=== PATIENT | female | born 1970 | race Caucasian/White ===

== ENCOUNTER 2019-03-06 18:28 | Emergency (ER) | payer BC, OTHER ==
[~2019-03-06] VITALS: Ht 167.6 cm; Wt 48.5 kg
[2019-03-06 19:31] LABS: BASOPHILS # (AUTO) 0.1 (0.0-0.1); BASOPHILS % 1.9 % (0.0-1.0); EOSINOPHILS # (AUTO) 0.3 (0.0-0.4); EOSINOPHILS % 6.7 % (0.0-6.0); HEMATOCRIT 38.8 % (34.2-44.1); HEMOGLOBIN 12.2 g/dL (12.0-16.0); LYMPHOCYTES # (AUTO) 1.4 (1.0-3.2); LYMPHOCYTES % 32.8 % (18.0-39.1); MEAN CORPUSCULAR HEMOGLOBIN 27.4 pg (28-32); MEAN CORPUSCULAR HGB CONC 31.4 g/dL (31-35); MEAN CORPUSCULAR VOLUME 87.2 fL (81-99); MONOCYTES # (AUTO) 0.3 (0.2-0.8); MONOCYTES % 8.1 % (4.4-11.3); NEUTROPHILS # (AUTO) 2.1 (2.1-6.9); NEUTROPHILS % 50.3 % (38.7-80.0); PLATELET COUNT 356 x10e3/uL (140-360); RED BLOOD COUNT 4.45 x10e6/uL (3.6-5.1); RED CELL DISTRIBUTION WIDTH 15.7 % (11.7-14.4)
--- NOTE | 2019-03-06 19:34 | Diagnostic Imaging Report ---
Exam: Head CT without contrast History: Forgetfulness, headache, disoriented Comparison studies: None Technique: Axial images were obtained from the skull base to the vertex. Coronal and sagittal images reconstructed from the axial data. Dose modulation, iterative reconstruction, and/or weight based adjustment of the mA/kV was utilized to reduce the radiation dose to as low as reasonably achievable. Radiation dose: Total DLP: 921 mGy*cm. Estimated effective dose: DLP x 0.015 Intravenous contrast: None Findings: Scalp: No abnormalities. Bones: No fractures, blastic or lytic lesions. Brain sulci: Appropriate for age. Ventricles: Normal in size and configuration. No hydrocephalus. Extra-axial spaces: No masses, no fluid collection. Parenchyma: No abnormal densities. No masses, acute hemorrhage, acute or chronic vascular insults. Sellar/suprasellar region: No abnormalities. Craniocervical junction: Patent foramen magnum. No Chiari one malformation. Included paranasal sinuses: Clear. Middle ear and mastoid cavities: Clear. IMPRESSION: No acute abnormalities. Signed by: Dr. Taurus Kapadia M.D. on 03/06/2019 7:30 PM
--- NOTE | 2019-03-06 19:49 | Diagnostic Imaging Report ---
EXAMINATION: CHEST 2 VIEWS INDICATION: ^SOB ^[id number] ^[id number] COMPARISON: None FINDINGS: PA and lateral views TUBES and LINES: None. LUNGS: Lungs are well inflated. There is no evidence of pneumonia or pulmonary edema. PLEURA: No pleural effusion or pneumothorax. HEART AND MEDIASTINUM: The cardiomediastinal silhouette is unremarkable. BONES AND SOFT TISSUES: No acute osseous lesion. Soft tissues are unremarkable. UPPER ABDOMEN: No free air under the diaphragm. IMPRESSION: No acute thoracic abnormality. Signed by: Dr. Nagi Salazar MD on 03/06/2019 7:45 PM
[2019-03-06 19:51] LABS: ALANINE AMINOTRANSFERASE 15 IU/L (0-55); ALBUMIN/GLOBULIN RATIO 1.4 (0.8-2.0); ALKALINE PHOSPHATASE 34 IU/L (40-150); ANION GAP 12.1 mmol/L (8-16); BLOOD UREA NITROGEN 13 mg/dL (7-26); BUN/CREATININE RATIO 16 (6-25); CALCIUM 9.2 mg/dL (8.4-10.2); CARBON DIOXIDE 29 mmol/L (22-29); CHLORIDE 102 mmol/L (98-107); EST GLOMERULAR FILTRATION RATE > 60 ML/MIN (60-); GLUCOSE 107 mg/dL (74-118); POTASSIUM 4.1 mmol/L (3.5-5.1); SODIUM 139 mmol/L (136-145)
[2019-03-06 21:35] LABS: BILIRUBIN,URINE NEGATIVE (NEGATIVE); CLARITY,URINE CLEAR (CLEAR); COLOR,URINE YELLOW (YELLOW); KETONES,URINE NEGATIVE (NEGATIVE); LEUKOCYTE ESTERASE ,URINE SMALL (NEGATIVE); NITRITE,URINE NEGATIVE (NEGATIVE); PROTEIN,URINE DIPSTICK 1+ (NEGATIVE); URINE UROBILINOGEN 0.2 mg/dL (0.2 - 1)
[2019-03-06 21:40] LABS: AMPHETAMINES SCREEN,URINE NEGATIVE (NEGATIVE); BENZODIAZEPINES SCREEN,URINE NEGATIVE (NEGATIVE); PHENCYCLIDINE SCREEN,URINE NEGATIVE (NEGATIVE)
[2019-03-06 21:47] LABS: BACTERIA,URINE MANY /HPF; EPITHELIAL CELLS,URINE MANY /LPF; TRANSITIONAL EPI CELLS,URINE MODERATE; WBC,URINE (MAN) 0-5 /HPF (0-5)
[2019-03-06 23:08] VITALS: BP 106/78
--- NOTE | 2019-03-06 23:16 | NUR ---
PT INFORMED OF URINE DRUG SCREEN RESULTS BY ER MD. PT DENIES ILLEGAL DRUG USE. ON DISCHARGE PATIENT ASKING IF ADDERALL PURSCHASED "OFF THE STREET COULD BE CUT WITH METH." PT INFORMED THAT PURSCHASING MEDICATION "OFF THE STREET" IS UNSAFE AND THAT THERE IS NO GUARANTEE TO WHAT IS IN "OFF THE STREET" THE MEDICATION. RECOMMENDED THAT PATIENT ONLY TAKE MEDICATION THAT IS ACQUIRED BY PRESCRIPTION THROUGH A PHYSICIAN. ER MD INFORMED OF PATIENT COMMENTS.
== END 2019-03-06 23:22 | disposition home or self-care (01) ==
LOC: ER 18:28
DX: R21 Rash and other nonspecific skin eruption (principal); R53.83 Other fatigue; J45.909 Unspecified asthma, uncomplicated; F41.9 Anxiety disorder, unspecified; F32.9 Major depressive disorder, single episode, unspecified; F17.210 Nicotine dependence, cigarettes, uncomplicated
CPT/HCPCS: 36415; 70450; 71046; 80053; 80307; 81001; 85025; 99284

== ENCOUNTER 2019-09-19 00:29 | Emergency (ER) | payer BC ==
[~2019-09-19] VITALS: Ht 167.6 cm; Wt 48.5 kg
--- OUTSIDE RECORDS SUMMARY | 2019-09-19 00:32 | XMS REPORT ---
Author Author [facility] Address Unknown Phone Unavailable Care Team Providers [facility] Honer Name Role Phone Chhaya ROSAS Unavailable Unavailable Payers Payer Name Policy Type Policy Number Effective Date Expiration Date Problems This patient has no known problems. Allergies, Adverse Reactions, Alerts Allergy Name Allergy Type Status Severity Reaction(s) Onset Date Inactive Date Treating Clinician Comments Sulfa (Sulfonamide Antibiotics) DA Active SV 2019-07-17 00:00:00 Sulfa (Sulfonamide Antibiotics) DA Active U 2019-03-27 00:00:00 Medications This patient has no known medications. Encounters Start Date/Time End Date/Time Encounter Type Admission Type Attending [facility] Care Department Encounter ID 2019-04-30 16:02:00 2019-04-30 16:02:00 Outpatient MHSE [id number] Results Test Description Test Time Test Comments Text Results Atomic Results Result Comments SURGICAL SPECIMENS 2019-07-25 08:03:00 RUN DATE: 07/25/19 [facility] *LIVE* PAGE 1 RUN TIME: 802 Specimen Inquiry RUN USER: INTERFACE PATIENT: CARLOS TOLLIVER LOC: [place] U #: [id number] AGE/SX: 49/F ROOM: RE07/21/[facility] DR: Raquel Arvizu MD : 74 BED: DIS: STATUS: [facility] TLOC: SPEC #: [id number] RECD: 07/22/19 STATUS: GUIDO MOCTEZUMA #: [id number] [place]: 07/22/[address] [facility] [address]: Raquel Arvizu MD ENTERED: 07/25/19 SP TYPE: SURG SPEC OTHR DR: Ajit Clements DO ORDERED: GM LEVEL 4 CODES: [id number] - UTERUS, NOS COPIES TO: Raquel Arvizu MD [address] [place] [address] Ajit Clements DO [address] [place] [address] PROCEDURES: GM LEVEL 4 (Incomplete) TISSUES: 1. UTERUS, NOS - Uterus, cervix, bilateral tubes and ovar FINAL DIAGNOSIS Cervix uteri: Chronic cervicitis, squamous metaplasia, nabothian cysts. Endometrium: Disordered proliferative endometrium. Corpus uteri: Adenomyosis, fibrous serosal adhesions. Adnexa, bilateral: Hydrosalpinx, follicular cyst (left). GROSS AND MICROSCOPIC GROSS EXAMINATION: Received the specimen as designated above and it consists of a uterus with attached bilateral adnexa that weighs 201 g. The uterus measures 8.5 x 6.3 x 6 cm, right ovary 3 cm, right tube 7.5 x 1 cm, left ovary 4 cm and left tube 8.5 x 1.2 cm. The endometrium measures 0.5 cm, myometrium 2.7 cm without nodules. Sections are submitted as (A)-right adnexa; (B)-(H.)-cervix, uterus and left adnexa. MICROSCOPIC EXAMINATION: The ectocervical mucosa has normal maturation. The endocervical mucosa has nabothian cysts, areas of squamous metaplasia and associated chronic inflammation. The endometrial glands are tubular or dilated and mitotic figures are CONTINUED ON NEXT PAGE RUN DATE: 07/25/19 [facility] *LIVE* PAGE 2 RUN TIME: 802 Specimen Inquiry RUN USER: INTERFACE SPEC #: [id number] PATIENT: CARLOS TOLLIVER #[id number] (Continued) GROSS AND MICROSCOPIC (Continued) within both the glands and the stroma. Benign endometrial glands and stroma are present in the myometrium. The serosa shows fibrous adhesions. The right adnexa shows hydrosalpinx. The left adnexa shows hydrosalpinx and follicular cyst. POST-OP DIAGNOSIS None given PRE-OP DIAGNOSIS Abnormal uterine bleeding, menorrhagia, anemia Signed SIGNATURE ON FILE Thalia Oseguera MD 07/25/19 0803 END OF REPORT COMPREHENSIVE METABOLIC PANEL 2019-07-17 09:33:00 SODIUM (test code=NA) 138 mEq/L 134-147 POTASSIUM (test code=K) 4.0 mEq/L 3.4-5.0 CHLORIDE (test code=CL) 106 mEq/L 100-108 CARBON DIOXIDE (test code=CO2) 28 mEq/L 21-33 ANION GAP (test code=GAP) 8 0-20 GLUCOSE (test code=GLU) 84 mg/dL 70-110 BLOOD UREA NITROGEN (test code=BUN) 9 mg/dL 7-18 GLOMERULAR FILTRATION RATE (test code=GFR) 107.2 95-105 Units of measure=ml/min/1.73 m2 CREATININE (test code=CREAT) 0.6 mg/dL 0.6-1.3 TOTAL PROTEIN (test code=PROT) 7.2 g/dL 6.4-8.2 ALBUMIN (test code=ALB) 3.90 g/dL 3.4-5.0 CALCIUM (test code=CA) 9.0 mg/dL 8.0-10.5 BILIRUBIN TOTAL (test code=BILT) 0.3 MG/DL <1.5 SGOT/AST (test code=AST) 15 IUnit/L 15-37 SGPT/ALT (test code=ALT) 22 IUnit/L 15-65 ALKALINE PHOSPHATASE TOTAL (test code=ALKP) 40 IUnit/L 20-125 HCG SERUM [id number] 09:33:00* Test Item Value Reference Range Comments HCG SERUM QUAL (test code=HCGQL) SERUM NEGATIVE NEGATIVE PROTHROMBIN [id number] 09:26:00* Test Item Value Reference Range Comments PROTHROMBIN TIME PATIENT (test code=PTP) 10.6 SECONDS 9.3-12.9 INTERNATIONAL NORMAL RATIO (test code=INR) 1.0 0.8-1.2 TARGET INR BY INDICATION Indication INR1. Prophylaxis of venous thrombosis 2.0 - 3.0 (orthopedic surgery), Prophylaxis of venous thrombosis (other than high-risk surgery), Treatment of Deep Vein Thrombosis/Pulmonary Embolism, Prevention of systemic embolism - Tissue heart valves, Acute Myocardial Infarction (to prevent systemic embolism), Valvular heart disease, Atrial Fibrillation, Bileaflet mechanical valve in aortic position.2. Mechanical prosthetic valves (high risk), 2.5 - 3.5 Presence of Lupus Anticoagulant or Antiphospholipid Antibodies, Prevention of systemic embolism - Acute Myocardial Infarction (to prevent recurrent infarct). THROMBOPLASTIN TIME [id number] 09:26:00* Test Item Value Reference Range Comments THROMBOPLASTIN TIME PARTIAL (test code=PTT) 38.4 Seconds 25.0-39.5 Therapeutic Range: 50.4 - 88.3 Seconds Effective 11/05/2018 COMPREHENSIVE METABOLIC [id number] 09:25:00* Test Item Value Reference Range Comments SODIUM (test code=NA) 138 mEq/L 134-147 POTASSIUM (test code=K) 4.0 mEq/L 3.4-5.0 CHLORIDE (test code=CL) 106 mEq/L 100-108 CARBON DIOXIDE (test code=CO2) 28 mEq/L 21-33 ANION GAP (test code=GAP) 8 0-20 GLUCOSE (test code=GLU) 84 mg/dL 70-110 BLOOD UREA NITROGEN (test code=BUN) 9 mg/dL 7-18 GLOMERULAR FILTRATION RATE (test code=GFR) 95-105 CREATININE (test code=CREAT) mg/dL 0.6-1.3 TOTAL PROTEIN (test code=PROT) g/dL 6.4-8.2 ALBUMIN (test code=ALB) g/dL 3.4-5.0 CALCIUM (test code=CA) 9.0 mg/dL 8.0-10.5 BILIRUBIN TOTAL (test code=BILT) MG/DL <1.5 SGOT/AST (test code=AST) IUnit/L 15-37 SGPT/ALT (test code=ALT) IUnit/L 15-65 ALKALINE PHOSPHATASE TOTAL (test code=ALKP) IUnit/L 20-125 HCG SERUM [id number] 09:25:00* Test Item Value Reference Range Comments HCG SERUM QUAL (test code=HCGQL) SERUM NEGATIVE NEGATIVE COMPREHENSIVE METABOLIC [id number] 09:23:00* Test Item Value Reference Range Comments SODIUM (test code=NA) mEq/L 134-147 POTASSIUM (test code=K) mEq/L 3.4-5.0 CHLORIDE (test code=CL) mEq/L 100-108 CARBON DIOXIDE (test code=CO2) mEq/L 21-33 ANION GAP (test code=GAP) 0-20 GLUCOSE (test code=GLU) mg/dL 70-110 BLOOD UREA NITROGEN (test code=BUN) mg/dL 7-18 GLOMERULAR FILTRATION RATE (test code=GFR) 95-105 CREATININE (test code=CREAT) mg/dL 0.6-1.3 TOTAL PROTEIN (test code=PROT) g/dL 6.4-8.2 ALBUMIN (test code=ALB) g/dL 3.4-5.0 CALCIUM (test code=CA) mg/dL 8.0-10.5 BILIRUBIN TOTAL (test code=BILT) MG/DL <1.5 SGOT/AST (test code=AST) IUnit/L 15-37 SGPT/ALT (test code=ALT) IUnit/L 15-65 ALKALINE PHOSPHATASE TOTAL (test code=ALKP) IUnit/L 20-125 HCG SERUM [id number] 09:23:00* Test Item Value Reference Range Comments HCG SERUM QUAL (test code=HCGQL) SERUM NEGATIVE NEGATIVE CBC W/AUTO [id number] 09:16:00* Test Item Value Reference Range Comments WHITE BLOOD CELL (test code=WBC) 4.39 x10 3/uL 4.5-11.0 RED BLOOD CELL (test code=RBC) 4.10 x10 6/uL 3.54-5.02 HEMOGLOBIN (test code=HGB) 12.9 g/dL 11.0-15.0 HEMATOCRIT (test code=HCT) 39.1 % 33.0-45.0 MEAN CELL VOLUME (test code=MCV) 95.4 fL 81.0-99.0 MEAN CELL HGB (test code=MCH) 31.5 pg 27.0-33.0 MEAN CELL HGB CONCETRATION (test code=MCHC) 33.0 g/dL 33.0-37.0 RED CELL DISTRIBUTION WIDTH CV (test code=RDW) 12.7 % 11.5-14.5 RED CELL DISTRIBUTION WIDTH SD (test code=RDW-SD) 44.7 fL 37.0-54.0 PLATELET COUNT (test code=PLT) 339 x10 3/uL 150-400 MEAN PLATELET VOLUME (test code=MPV) 9.2 fL 7.0-9.0 NEUTROPHIL % (test code=NT%) 48.8 % 56.0-77.0 IMMATURE GRANULOCYTE % (test code=IG%) 0.2 % 0.0-2.0 LYMPHOCYTE % (test code=LY%) 35.3 % 14.0-32.0 MONOCYTE % (test code=MO%) 8.9 % 4.8-9.0 EOSINOPHIL % (test code=EO%) 5.2 % 0.3-3.7 BASOPHIL % (test code=BA%) 1.6 % 0.0-2.0 NUCLEATED RBC % (test code=NRBC%) 0.0 % 0-0 NEUTROPHIL # (test code=NT#) 2.14 x10 3/uL 2.0-7.6 IMMATURE GRANULOCYTE # (test code=IG#) 0.01 x10 3/uL 0.00-0.03 LYMPHOCYTE # (test code=LY#) 1.55 x10 3/uL 1.0-3.8 MONOCYTE # (test code=MO#) 0.39 x10 3/uL 0.1-0.8 EOSINOPHIL # (test code=EO#) 0.23 x10 3/uL 0.0-0.2 BASOPHIL # (test code=BA#) 0.07 x10 3/uL 0.0-0.2 NUCLEATED RBC # (test code=NRBC#) 0.00 x10 3/uL 0.0-0.1 MANUAL DIFF REQUIRED (test code=MDIFF) NO MISC TEST:2019-04-10 07:30:00* Test Item Value Reference Range Comments MISC TEST: (test code=MISCCHEM) Lyme (B. burgdorferi TESTS RESULT REFERENCE INTERVAL Lyme (B. burgdorferi) PCR Negative Negative No B. burgdorferi DNA Detected. Test performed at: [facility] [address] C REACTIVE [id number] 22:06:00* Test Item Value Reference Range Comments C REACTIVE PROTEIN (test code=CRP) <0.29 mg/dL 0-0.3 ANTINUCLEAR ANTIBODIES [id number] 22:06:00* Test Item Value Reference Range Comments MASSIMO SCREEN (test code=ANASCR) Negative Negative Performed At: [facility] [id number] Rylan Ordonez MD Ph:[phone] BARTONELLA HENSELAE [id number] 22:06:00* Test Item Value Reference Range Comments AB BARTONELLA HENSELAE IGG (test code=BARTGAB) Negative titer Neg:<1:320 Bartonella henselae IgG . AB BARTONELLA HENSELAE IGM (test code=BARTMAB) Negative titer Neg:<1:100 Bartonella henselae IgM . AB BARTONELLA SHAVER IGG (test code=BARTQIGG) Negative titer Neg:<1:320 Bartonella shaver IgG . AB BARTONELLA SHAVER IGM (test code=BARTQIGM) Negative titer Neg:<1:100 Note: Bartonella henselae is now regarded as the etiologicagent of Cat Scratch Disease, bacillary angiomatosis,endocarditis and fever with bacteremia. Bartonellaquintana also causes bacillary angiomatosis particularlyamong immunocompromised patients, and trench fever.This test was developed and its performance characteristicsdetermined by [facility]. It has not been cleared or approvedby the Food and Drug Administration. The FDA hasdetermined that such clearance or approval is notnecessary.Performed At: [facility] [id number] Conde MD Ph:[phone] rashmi IgM . AB CMV [id number] 22:06:00* Test Item Value Reference Range Comments AB CMV IGM (test code=CMVMAB) <30.0 AU/mL 0.0-29.9 Negative <30.0 Equivocal 30.0 - 34.9 Positive >34.9A positive result is generally indicative of acuteinfection, reactivation or persistent IgM production.Performed At: [facility] [id number] Conde MD Ph:[phone] AB EBSTEIN BOATENG VIRUS [id number] 22:06:00* Test Item Value Reference Range Comments EBV VIRAL CAPSID AB IGM (test code=EBVCAM) <36.0 U/mL 0.0-35.9 Negative <36.0 Equivocal 36.0 - 43.9 Positive >43.9 EBV VIRAL CAPSID AB IGG (test code=EBVCAG) >600.0 U/mL 0.0-17.9 Negative <18.0 Equivocal 18.0 - 21.9 Positive >21.9 SON-BOATENG INTERPRETATION (test code=EBVI) () EBV Interpretation ChartInterpretation EBV-IgM EA(D)-IgG VCA-IgG EBNA-IgGEBV Seronegative - - - -Early Phase + - - -Acute Primary + +or- + -InfectionConvalescence/Past - +or- + +InfectionReactivated +or- +or- + +Infection + Antibody Present - Antibody AbsentPreviously reported result: Edited by: MATT on 04/01/19:83233704/01/19909: EBVI previously reported as: AB SON BOATENG EARLY AG (test code=EBVEAB) <9.0 U/mL 0.0-8.9 Negative < 9.0 Equivocal 9.0 - 10.9 Positive >10.9 AB SON BOATENG NUCLEAR AG (test code=EBVNAAB) 98.1 U/mL 0.0-17.9 Negative <18.0 Equivocal 18.0 - 21.9 Positive >21.9 AB MYCOPLASMA [id number] 22:06:00* Test Item Value Reference Range Comments AB MYCOPLAS PNEUMONIAE IGM EIA (test code=MYCOMABEIA) <770 U/mL 0-769 Negative <770Clinically significant amount of M. pneumoniae antibodynot detected. Low Positive 770 - 950M. pneumoniae specific IgM presumptively detected. Itis recommended that another sample be collected 1-2weeks later to assure reactivity. Positive >950Highly significant amount of M. p neumoniae specificIgM antibody detected.Performed At: [facility] [id number] Conde MD Ph:[phone] Negative <770 Clinically significant amount of M.pneumoniae antibody not detected. Low Positive 770 - 950 M. pneumoniae specific IgM presumptively detected. It is recommended that another sample be collected 1-2 weeks later to assure reactivity. Positive >950 Highly significant amount of M.pneumoniae specific IgM antibody detected. AB MYCOPLAS PNEUMO IGG EIA (test code=MYCOGABEIA) 489 U/mL 0-99 Negative: <100 Indeterminate: 100 - 320 Positive: >320The reference interval established is intended as abaseline only. Values >100 may indicate a recentinfection with Mycoplasma pneumoniae and need to beconfirmed either by a positive IgM result and/or anadditional specimen drawn 2-4 weeks later showing asignificant increase in antibody levels. Negative: <100 Indeterminate: 100 - 320 Positive: >320 Q-FEVER [id number] 22:06:00* Test Item Value Reference Range Comments Q-FEVER PHASE 1 (test code=QF1) Negative Neg:<1:16 Q-FEVER PHASE 2 (test code=QF2) Negative Neg:<1:16 Note: Four-fold increases between paired sera arerecommended to demonstrate recent infection.Performed At: [facility] [id number] Conde MD Ph:[phone] C REACTIVE [id number] 16:08:00* Test Item Value Reference Range Comments C REACTIVE PROTEIN (test code=CRP) <0.29 mg/dL 0-0.3 ANTINUCLEAR ANTIBODIES [id number] 16:08:00* Test Item Value Reference Range Comments MASSIMO SCREEN (test code=ANASCR) Negative Negative Performed At: [facility] [place], [place] [id number] Rylan Ordonez MD Ph:[phone] BARTONELLA HENSELAE [id number] 16:08:00* Test Item Value Reference Range Comments AB BARTONELLA HENSELAE IGG (test code=BARTGAB) Negative titer Neg:<1:320 Bartonella henselae IgG . AB BARTONELLA HENSELAE IGM (test code=BARTMAB) Negative titer Neg:<1:100 Bartonella henselae IgM . AB BARTONELLA SHAVER IGG (test code=BARTQIGG) Negative titer Neg:<1:320 Bartonella shaver IgG . AB BARTONELLA SHAVER IGM (test code=BARTQIGM) Negative titer Neg:<1:100 Note: Bartonella henselae is now regarded as the etiologicagent of Cat Scratch Disease, bacillary angiomatosis,endocarditis and fever with bacteremia. Bartonellaquintana also causes bacillary angiomatosis particularlyamong immunocompromised patients, and trench fever.This test was developed and its performance characteristicsdetermined by [employer] [facility]. It has not been cleared or approvedby the Food and Drug Administration. The FDA hasdetermined that such clearance or approval is notnecessary.Performed At: [address] [id number] Conde MD Ph:[phone] shaver IgM . AB CMV [id number] 16:08:00* Test Item Value Reference Range Comments AB CMV IGM (test code=CMVMAB) <30.0 AU/mL 0.0-29.9 Negative <30.0 Equivocal 30.0 - 34.9 Positive >34.9A positive result is generally indicative of acuteinfection, reactivation or persistent IgM production.Performed At: [address] [id number] Conde MD Ph:[phone] AB EBSTEIN BOATENG VIRUS [id number] 16:08:00* Test Item Value Reference Range Comments EBV VIRAL CAPSID AB IGM (test code=EBVCAM) <36.0 U/mL 0.0-35.9 Negative <36.0 Equivocal 36.0 - 43.9 Positive >43.9 EBV VIRAL CAPSID AB IGG (test code=EBVCAG) >600.0 U/mL 0.0-17.9 Negative <18.0 Equivocal 18.0 - 21.9 Positive >21.9 SON-BOATENG INTERPRETATION (test code=EBVI) () EBV Interpretation ChartInterpretation EBV-IgM EA(D)-IgG VCA-IgG EBNA-IgGEBV Seronegative - - - -Early Phase + - - -Acute Primary + +or- + -InfectionConvalescence/Past - +or- + +InfectionReactivated +or- +or- + +Infection + Antibody Present - Antibody AbsentPreviously reported result: Edited by: MATT on 04/01/19:[id number]: EBVI previously reported as: AB SON BOATENG EARLY AG (test code=EBVEAB) <9.0 U/mL 0.0-8.9 Negative < 9.0 Equivocal 9.0 - 10.9 Positive >10.9 AB SON BOATENG NUCLEAR AG (test code=EBVNAAB) 98.1 U/mL 0.0-17.9 Negative <18.0 Equivocal 18.0 - 21.9 Positive >21.9 AB MYCOPLASMA [id number] 16:08:00* Test Item Value Reference Range Comments AB MYCOPLAS PNEUMONIAE IGM EIA (test code=MYCOMABEIA) Units/mL 0-769 AB MYCOPLAS PNEUMO IGG EIA (test code=MYCOGABEIA) U/mL 0-99 Q-FEVER [id number] 16:08:00* Test Item Value Reference Range Comments Q-FEVER PHASE 1 (test code=QF1) Negative Neg:<1:16 Q-FEVER PHASE 2 (test code=QF2) Negative Neg:<1:16 Note: Four-fold increases between paired sera arerecommended to demonstrate recent infection.Performed At: [address] [id number] Sanjai MD Ph:[phone] C REACTIVE [id number] 12:09:00* Test Item Value Reference Range Comments C REACTIVE PROTEIN (test code=CRP) <0.29 mg/dL 0-0.3 ANTINUCLEAR ANTIBODIES [id number] 12:09:00* Test Item Value Reference Range Comments MASSIMO SCREEN (test code=ANASCR) Negative Negative Performed At: [address] [id number] Rylan Ordonez MD Ph:[phone] BARTONELLA HENSELAE [id number] 12:09:00* Test Item Value Reference Range Comments AB BARTONELLA HENSELAE IGG (test code=BARTGAB) Negative titer Neg:<1:320 Bartonella henselae IgG . AB BARTONELLA HENSELAE IGM (test code=BARTMAB) Negative titer Neg:<1:100 Bartonella henselae IgM . AB BARTONELLA SHAVER IGG (test code=BARTQIGG) Negative titer Neg:<1:320 Bartonella shaver IgG . AB BARTONELLA SHAVER IGM (test code=BARTQIGM) Negative titer Neg:<1:100 Note: Bartonella henselae is now regarded as the etiologicagent of Cat Scratch Disease, bacillary angiomatosis,endocarditis and fever with bacteremia. Bartonellaquintana also causes bacillary angiomatosis particularlyamong immunocompromised patients, and trench fever.This test was developed and its performance characteristicsdetermined by [employer]. It has not been cleared or approvedby the Food and Drug Administration. The FDA hasdetermined that such clearance or approval is notnecessary.Performed At: [address] [id number] Conde MD Ph:[phone] shaver IgM . AB CMV [id number] 12:09:00* Test Item Value Reference Range Comments AB CMV IGM (test code=CMVMAB) <30.0 AU/mL 0.0-29.9 Negative <30.0 Equivocal 30.0 - 34.9 Positive >34.9A positive result is generally indicative of acuteinfection, reactivation or persistent IgM production.Performed At: [address] [id number] Conde MD Ph:[phone] AB EBSTEIN BOATENG VIRUS [id number] 12:09:00* Test Item Value Reference Range Comments EBV VIRAL CAPSID AB IGM (test code=EBVCAM) <36.0 U/mL 0.0-35.9 Negative <36.0 Equivocal 36.0 - 43.9 Positive >43.9 EBV VIRAL CAPSID AB IGG (test code=EBVCAG) >600.0 U/mL 0.0-17.9 Negative <18.0 Equivocal 18.0 - 21.9 Positive >21.9 SON-BOATENG INTERPRETATION (test code=EBVI) () EBV Interpretation ChartInterpretation EBV-IgM EA(D)-IgG VCA-IgG EBNA-IgGEBV Seronegative - - - -Early Phase + - - -Acute Primary + +or- + -InfectionConvalescence/Past - +or- + +InfectionReactivated +or- +or- + +Infection + Antibody Present - Antibody AbsentPreviously reported result: Edited by: MATT on 04/01/19:79637004/01/1910: EBVI previously reported as: AB SON BOATENG EARLY AG (test code=EBVEAB) <9.0 U/mL 0.0-8.9 Negative < 9.0 Equivocal 9.0 - 10.9 Positive >10.9 AB SON BOATENG NUCLEAR AG (test code=EBVNAAB) 98.1 U/mL 0.0-17.9 Negative <18.0 Equivocal 18.0 - 21.9 Positive >21.9 AB MYCOPLASMA [id number] 12:09:00* Test Item Value Reference Range Comments AB MYCOPLAS PNEUMONIAE IGM EIA (test code=MYCOMABEIA) Units/mL 0-769 AB MYCOPLAS PNEUMO IGG EIA (test code=MYCOGABEIA) U/mL 0-99 Q-FEVER [id number] 12:09:00* Test Item Value Reference Range Comments Q-FEVER PHASE 1 (test code=QF1) <1:16 Q-FEVER PHASE 2 (test code=QF2) <1:16 C REACTIVE [id number] 09:10:00* Test Item Value Reference Range Comments C REACTIVE PROTEIN (test code=CRP) <0.29 mg/dL 0-0.3 ANTINUCLEAR ANTIBODIES [id number] 09:10:00* Test Item Value Reference Range Comments MASSIMO SCREEN (test code=ANASCR) BARTONELLA HENSELAE [id number] 09:10:00* Test Item Value Reference Range Comments AB BARTONELLA HENSELAE IGG (test code=BARTGAB) TITER <1:320 AB BARTONELLA HENSELAE IGM (test code=BARTMAB) TITER <1:100 AB BARTONELLA SHAVER IGG (test code=BARTQIGG) TITER <1:320 AB BARTONELLA SHAVER IGM (test code=BARTQIGM) TITER <1:100 AB CMV [id number] 09:10:00* Test Item Value Reference Range Comments AB CMV IGM (test code=CMVMAB) <30.0 AU/mL 0.0-29.9 Negative <30.0 Equivocal 30.0 - 34.9 Positive >34.9A positive result is generally indicative of acuteinfection, reactivation or persistent IgM production.Performed At: [facility] [id number] Sanjai MD Ph:[phone] AB EBSTEIN BOATENG VIRUS [id number] 09:10:00* Test Item Value Reference Range Comments EBV VIRAL CAPSID AB IGM (test code=EBVCAM) <36.0 U/mL 0.0-35.9 Negative <36.0 Equivocal 36.0 - 43.9 Positive >43.9 EBV VIRAL CAPSID AB IGG (test code=EBVCAG) >600.0 U/mL 0.0-17.9 Negative <18.0 Equivocal 18.0 - 21.9 Positive >21.9 SON-BOATENG INTERPRETATION (test code=EBVI) () EBV Interpretation ChartInterpretation EBV-IgM EA(D)-IgG VCA-IgG EBNA-IgGEBV Seronegative - - - -Early Phase + - - -Acute Primary + +or- + -InfectionConvalescence/Past - +or- + +InfectionReactivated +or- +or- + +Infection + Antibody Present - Antibody AbsentPreviously reported result: Edited by: MATT on 04/01/19:85073804/01/19909: EBVI previously reported as: AB SON BOATENG EARLY AG (test code=EBVEAB) <9.0 U/mL 0.0-8.9 Negative < 9.0 Equivocal 9.0 - 10.9 Positive >10.9 AB SON BOATENG NUCLEAR AG (test code=EBVNAAB) 98.1 U/mL 0.0-17.9 Negative <18.0 Equivocal 18.0 - 21.9 Positive >21.9 AB MYCOPLASMA [id number] 09:10:00* Test Item Value Reference Range Comments AB MYCOPLAS PNEUMONIAE IGM EIA (test code=MYCOMABEIA) Units/mL 0-769 AB MYCOPLAS PNEUMO IGG EIA (test code=MYCOGABEIA) U/mL 0-99 Q-FEVER [id number] 09:10:00* Test Item Value Reference Range Comments Q-FEVER PHASE 1 (test code=QF1) <1:16 Q-FEVER PHASE 2 (test code=QF2) <1:16 C REACTIVE [id number] 09:10:00* Test Item Value Reference Range Comments C REACTIVE PROTEIN (test code=CRP) <0.29 mg/dL 0-0.3 ANTINUCLEAR ANTIBODIES [id number] 09:10:00* Test Item Value Reference Range Comments MASSIMO SCREEN (test code=ANASCR) Negative Negative Performed At: [facility] [address] [id number] Kyle L MD Ph:[phone] BARTONELLA HENSELAE [id number] 09:10:00* Test Item Value Reference Range Comments AB BARTONELLA HENSELAE IGG (test code=BARTGAB) TITER <1:320 AB BARTONELLA HENSELAE IGM (test code=BARTMAB) TITER <1:100 AB BARTONELLA SHAVER IGG (test code=BARTQIGG) TITER <1:320 AB BARTONELLA SHAVER IGM (test code=BARTQIGM) TITER <1:100 AB CMV [id number] 09:10:00* Test Item Value Reference Range Comments AB CMV IGM (test code=CMVMAB) <30.0 AU/mL 0.0-29.9 Negative <30.0 Equivocal 30.0 - 34.9 Positive >34.9A positive result is generally indicative of acuteinfection, reactivation or persistent IgM production.Performed At: [facility] [id number] Conde MD Ph:[phone] AB EBSTEIN BOATENG VIRUS [id number] 09:10:00* Test Item Value Reference Range Comments EBV VIRAL CAPSID AB IGM (test code=EBVCAM) <36.0 U/mL 0.0-35.9 Negative <36.0 Equivocal 36.0 - 43.9 Positive >43.9 EBV VIRAL CAPSID AB IGG (test code=EBVCAG) >600.0 U/mL 0.0-17.9 Negative <18.0 Equivocal 18.0 - 21.9 Positive >21.9 SON-BOATENG INTERPRETATION (test code=EBVI) () EBV Interpretation ChartInterpretation EBV-IgM EA(D)-IgG VCA-IgG EBNA-IgGEBV Seronegative - - - -Early Phase + - - -Acute Primary + +or- + -InfectionConvalescence/Past - +or- + +InfectionReactivated +or- +or- + +Infection + Antibody Present - Antibody AbsentPreviously reported result: Edited by: MATT on 04/01/19:[id number]/01/1910: EBVI previously reported as: AB SON BOATENG EARLY AG (test code=EBVEAB) <9.0 U/mL 0.0-8.9 Negative < 9.0 Equivocal 9.0 - 10.9 Positive >10.9 AB SON BOATENG NUCLEAR AG (test code=EBVNAAB) 98.1 U/mL 0.0-17.9 Negative <18.0 Equivocal 18.0 - 21.9 Positive >21.9 AB MYCOPLASMA [id number] 09:10:00* Test Item Value Reference Range Comments AB MYCOPLAS PNEUMONIAE IGM EIA (test code=MYCOMABEIA) Units/mL 0-769 AB MYCOPLAS PNEUMO IGG EIA (test code=MYCOGABEIA) U/mL 0-99 Q-FEVER [id number] 09:10:00* Test Item Value Reference Range Comments Q-FEVER PHASE 1 (test code=QF1) <1:16 Q-FEVER PHASE 2 (test code=QF2) <1:16 C REACTIVE [id number] 04:07:00* Test Item Value Reference Range Comments C REACTIVE PROTEIN (test code=CRP) <0.29 mg/dL 0-0.3 ANTINUCLEAR ANTIBODIES [id number] 04:07:00* Test Item Value Reference Range Comments MASSIMO SCREEN (test code=ANASCR) BARTONELLA HENSELAE [id number] 04:07:00* Test Item Value Reference Range Comments AB BARTONELLA HENSELAE IGG (test code=BARTGAB) TITER <1:320 AB BARTONELLA HENSELAE IGM (test code=BARTMAB) TITER <1:100 AB BARTONELLA SHAVER IGG (test code=BARTQIGG) TITER <1:320 AB BARTONELLA SHAVER IGM (test code=BARTQIGM) TITER <1:100 AB CMV [id number] 04:07:00* Test Item Value Reference Range Comments AB CMV IGM (test code=CMVMAB) <30.0 AU/mL 0.0-29.9 Negative <30.0 Equivocal 30.0 - 34.9 Positive >34.9A positive result is generally indicative of acuteinfection, reactivation or persistent IgM production.Performed At: [address] [id number] Sanjai MD Ph:[phone] AB EBSTEIN BOATENG VIRUS [id number] 04:07:00* Test Item Value Reference Range Comments EBV VIRAL CAPSID AB IGM (test code=EBVCAM) U/mL EBV VIRAL CAPSID AB IGG (test code=EBVCAG) U/mL AB SON BOATENG EARLY AG (test code=EBVEAB) U/mL AB SON BOATENG NUCLEAR AG (test code=EBVNAAB) U/mL AB MYCOPLASMA [id number] 04:07:00* Test Item Value Reference Range Comments AB MYCOPLAS PNEUMONIAE IGM EIA (test code=MYCOMABEIA) Units/mL 0-769 AB MYCOPLAS PNEUMO IGG EIA (test code=MYCOGABEIA) U/mL 0-99 Q-FEVER [id number] 04:07:00* Test Item Value Reference Range Comments Q-FEVER PHASE 1 (test code=QF1) <1:16 Q-FEVER PHASE 2 (test code=QF2) <1:16 AB TOXOPLASMA [id number] 11:09:00* Test Item Value Reference Range Comments AB TOXOPLASMA IGM (test code=TOXOMAB) <3.0 AU/mL 0.0-7.9 Negative <8.0 Equivocal 8.0 - 9.9 Positive >9.9 C REACTIVE [id number] 23:12:00* Test Item Value Reference Range Comments C REACTIVE PROTEIN (test code=CRP) <0.29 mg/dL 0-0.3 ANTINUCLEAR ANTIBODIES [id number] 23:12:00* Test Item Value Reference Range Comments MASSIMO SCREEN (test code=ANASCR) BARTONELLA HENSELAE [id number] 23:12:00* Test Item Value Reference Range Comments AB BARTONELLA HENSELAE IGG (test code=BARTGAB) TITER <1:320 AB BARTONELLA HENSELAE IGM (test code=BARTMAB) TITER <1:100 AB BARTONELLA SHAVER IGG (test code=BARTQIGG) TITER <1:320 AB BARTONELLA SHAVER IGM (test code=BARTQIGM) TITER <1:100 AB CMV [id number] 23:12:00* Test Item Value Reference Range Comments AB CMV IGM (test code=CMVMAB) AB EBSTEIN BOATENG VIRUS [id number] 23:12:00* Test Item Value Reference Range Comments EBV VIRAL CAPSID AB IGM (test code=EBVCAM) U/mL EBV VIRAL CAPSID AB IGG (test code=EBVCAG) U/mL AB SON BOATENG EARLY AG (test code=EBVEAB) U/mL AB SON BOATENG NUCLEAR AG (test code=EBVNAAB) U/mL AB MYCOPLASMA [id number] 23:12:00* Test Item Value Reference Range Comments AB MYCOPLAS PNEUMONIAE IGM EIA (test code=MYCOMABEIA) Units/mL 0-769 AB MYCOPLAS PNEUMO IGG EIA (test code=MYCOGABEIA) U/mL 0-99 Q-FEVER [id number] 23:12:00* Test Item Value Reference Range Comments Q-FEVER PHASE 1 (test code=QF1) <1:16 Q-FEVER PHASE 2 (test code=QF2) <1:16 - CT ABD PELVIS [id number] 15:21:00 Name: CARLOS TOLLIVER [facility] : 1970 Age/S: 48 / F [address] [facility] Unit #: [id number] Loc: [place] [address] Phys: Carlin Sen MD Acct: [id number] Dis Date: Status: ADM IN PHONE #: [phone] Exam Date: 03/29/2019 1450 FAX #: [phone] Reason: r/o infection EXAMS: CPT CODE: [id number] CT ABD PELVIS W/CONT 22557 EXAM: CT of the abdomen and pelvis with contrast; INFORMATION: Fever, sepsis; TECHNIQUE: CT dose reduction protocol; 5 mm cuts were obtained through the abdomen and pelvis during and after intravenous infusion of contrast material. FINDINGS: Liver, spleen and pancreas are of normal size and shape; they show homogeneous enhancement without focal lesions. No abnormalities of the biliary system. Adrenal glands and kidneys are unremarkable; no evidence of adenopathy; No evidence of appendicitis or other acute bowel abnormalities. No pelvic mass lesions. There are tubal ligation clips which may be dislodged. No abnormal fluid collections. Large amount of stool within a distended rectosigmoid colon. Scans through the lung bases are clear. Breast implants. IMPRESSION: 1. No evidence of acute abdominal or pelvic abnormalities. 2. Rectosigmoid stool impaction. 3. Suspicion of dislodged tubal ligation clips. El ectronically Signed by Alexa Mayfield on 03/29 at 1521 Reported and signed by: Jonathan Mayfield M.D. CC: Rayna Mendiola MD; Carlin Sen MD Technologist:Terri Benito RT(R),CT CTDI: DLP: Trnscb D ate/Time: 03/29/2019 (1521) t.GRW Orig Print D/T: S: 03/29/2019 (8454) PAGE 1 Signed Report SED RATE [id number] 11:36:00* Test Item Value Reference Range Comments SED RATE WILLREN (test code=SEDW) 8 mm/hr 0-20 SED [id number] 11:36:00* Test Item Value Reference Range Comments SED RATE (test code=SEDW) 8 mm/hr 0-20 WINTROBE METHOD: NORMAL RANGE FOR MEN: 0-9 MM/HR WOMAN: 0-20 MM/HR RHEUMATOID FACTOR [id number] 06:16:00* Test Item Value Reference Range Comments RHEUMATOID FACTOR SCREEN (test code=RA) NEGATIVE NEGATIVE LEGIONELLA ANTIGEN,URINE,[id number] 03:23:00* Test Item Value Reference Range Comments LEGIONELLA ANTIGEN,URINE,CHELSEY (test code=LEGAGUR) NEGATIVE NEGATIVE [id number] 21:50:00* Test Item Value Reference Range Comments AMYLASE (test code=LUIS FELIPE) 70 Unit/L 25-115 [id number] 21:50:00* Test Item Value Reference Range Comments LIPASE (test code=LIP) 244 U/L 73.0-393.[id number] 15:44:00* Test Item Value Reference Range Comments CSF COLOR (test code=COLCSF) CLEAR/COLORLESS Color and Appearance performed on un-spun CSF CSF APPEARANCE (test code=APPCSF) CLEAR/NO XANTHOCHROM Color and Appearance performed on spun CSF CSF TUBE # (test code=TUBECSF) #3 CSF VOLUME (test code=VOLCSF) 2 CC CSF WBC (test code=WBCCSF) 0 per uL 0-5 QC performed - Cell count on both sides of chamber agreeswithin 20% ? Y CSF RBC (test code=RBCCSF) 29 per uL CSF POLY (test code=POLYCSF) 0.0 % 0-7 CSF LYMPHOCYTE (test code=LYMPHCSF) 0.0 % 28-96 CSF EOSINOPHIL (test code=EOSCSF) 0.0 % CSF BASOPHIL (test code=BASOCSF) 0.0 % CSF MACROPHAGE (test code=MACCSF) 0.0 % CSF PLASMA CELL (test code=PLACSF) 0.0 % CSF COMMENT (test code=COMCSF) PATHOLOGY TO REVIEW TOTAL CELLS COUNTED ON DIFF (test code=TOTCELLFL) 0 cells REVIEWED BY (test code=REVIEW) MESFIN WU PATHOLOGIST CSF [id number] 15:44:00* Test Item Value Reference Range Comments CSF GLUCOSE (test code=GLUCSF) 54 mg/dL 45-65 CSF TOTAL [id number] 15:44:00* Test Item Value Reference Range Comments CSF TOTAL PROTEIN (test code=PROTCSF) 33.0 mg/dL 15-45 Protein levels may be falsely elevated in patients withelevated level of aminoglycoside antibiotics in CSF and inhighly concentrated urine specimens. If false elevation issuspected, contact lab for alternated testing technique. CSF CELL [id number] 23:37:00* Test Item Value Reference Range Comments CSF COLOR (test code=COLCSF) CLEAR/COLORLESS Color and Appearance performed on un-spun CSF CSF APPEARANCE (test code=APPCSF) CLEAR/NO XANTHOCHROM Color and Appearance performed on spun CSF CSF TUBE # (test code=TUBECSF) #3 CSF VOLUME (test code=VOLCSF) 2 CC CSF WBC (test code=WBCCSF) 0 per uL 0-5 QC performed - Cell count on both sides of chamber agreeswithin 20% ? Y CSF RBC (test code=RBCCSF) 29 per uL CSF POLY (test code=POLYCSF) 0.0 % 0-7 CSF LYMPHOCYTE (test code=LYMPHCSF) 0.0 % 28-96 CSF EOSINOPHIL (test code=EOSCSF) 0.0 % CSF BASOPHIL (test code=BASOCSF) 0.0 % CSF MACROPHAGE (test code=MACCSF) 0.0 % CSF PLASMA CELL (test code=PLACSF) 0.0 % CSF COMMENT (test code=COMCSF) PATHOLOGY TO REVIEW TOTAL CELLS COUNTED ON DIFF (test code=TOTCELLFL) 0 cells REVIEWED BY (test code=REVIEW) PATHOLOGIST CSF [id number] 23:37:00* Test Item Value Reference Range Comments CSF GLUCOSE (test code=GLUCSF) 54 mg/dL 45-65 CSF TOTAL [id number] 23:37:00* Test Item Value Reference Range Comments CSF TOTAL PROTEIN (test code=PROTCSF) 33.0 mg/dL 15-45 Protein levels may be falsely elevated in patients withelevated level of aminoglycoside antibiotics in CSF and inhighly concentrated urine specimens. If false elevation issuspected, contact lab for alternated testing technique. CSF CELL [id number] 22:25:00* Test Item Value Reference Range Comments CSF COLOR (test code=COLCSF) CLEAR/COLORLESS Color and Appearance performed on un-spun CSF CSF APPEARANCE (test code=APPCSF) CLEAR/NO XANTHOCHROM Color and Appearance performed on spun CSF CSF TUBE # (test code=TUBECSF) #3 CSF VOLUME (test code=VOLCSF) 2 CC CSF WBC (test code=WBCCSF) 0 per uL 0-5 QC performed - Cell count on both sides of chamber agreeswithin 20% ? Y CSF RBC (test code=RBCCSF) 29 per uL CSF POLY (test code=POLYCSF) % 0-7 CSF LYMPHOCYTE (test code=LYMPHCSF) % 28-96 CSF EOSINOPHIL (test code=EOSCSF) % CSF BASOPHIL (test code=BASOCSF) % CSF MACROPHAGE (test code=MACCSF) % CSF PLASMA CELL (test code=PLACSF) % TOTAL CELLS COUNTED ON DIFF (test code=TOTCELLFL) cells REVIEWED BY (test code=REVIEW) PATHOLOGIST CSF [id number] 22:25:00* Test Item Value Reference Range Comments CSF GLUCOSE (test code=GLUCSF) 54 mg/dL 45-65 CSF TOTAL [id number] 22:25:00* Test Item Value Reference Range Comments CSF TOTAL PROTEIN (test code=PROTCSF) 33.0 mg/dL 15-45 Protein levels may be falsely elevated in patients withelevated level of aminoglycoside antibiotics in CSF and inhighly concentrated urine specimens. If false elevation issuspected, contact lab for alternated testing technique. CSF CELL [id number] 22:07:00* Test Item Value Reference Range Comments FLUID TOTAL CELLS (test code=TCFL) cells/uL >0 CSF COLOR (test code=COLCSF) CSF APPEARANCE (test code=APPCSF) CSF TUBE # (test code=TUBECSF) CSF VOLUME (test code=VOLCSF) 2 CC CSF WBC (test code=WBCCSF) per uL 0-5 CSF RBC (test code=RBCCSF) per uL CSF POLY (test code=POLYCSF) % 0-7 CSF LYMPHOCYTE (test code=LYMPHCSF) % 28-96 CSF EOSINOPHIL (test code=EOSCSF) % CSF BASOPHIL (test code=BASOCSF) % CSF MACROPHAGE (test code=MACCSF) % CSF PLASMA CELL (test code=PLACSF) % TOTAL CELLS COUNTED ON DIFF (test code=TOTCELLFL) cells REVIEWED BY (test code=REVIEW) PATHOLOGIST CSF [id number] 22:07:00* Test Item Value Reference Range Comments CSF GLUCOSE (test code=GLUCSF) 54 mg/dL 45-65 CSF TOTAL [id number] 22:07:00* Test Item Value Reference Range Comments CSF TOTAL PROTEIN (test code=PROTCSF) 33.0 mg/dL 15-45 Protein levels may be falsely elevated in patients withelevated level of aminoglycoside antibiotics in CSF and inhighly concentrated urine specimens. If false elevation issuspected, contact lab for alternated testing technique. CSF CELL [id number] 21:45:00* Test Item Value Reference Range Comments FLUID TOTAL CELLS (test code=TCFL) cells/uL >0 CSF COLOR (test code=COLCSF) CSF APPEARANCE (test code=APPCSF) CSF TUBE # (test code=TUBECSF) CSF VOLUME (test code=VOLCSF) 2 CC CSF WBC (test code=WBCCSF) per uL 0-5 CSF RBC (test code=RBCCSF) per uL CSF POLY (test code=POLYCSF) % 0-7 CSF LYMPHOCYTE (test code=LYMPHCSF) % 28-96 CSF EOSINOPHIL (test code=EOSCSF) % CSF BASOPHIL (test code=BASOCSF) % CSF MACROPHAGE (test code=MACCSF) % CSF PLASMA CELL (test code=PLACSF) % TOTAL CELLS COUNTED ON DIFF (test code=TOTCELLFL) cells REVIEWED BY (test code=REVIEW) PATHOLOGIST CSF [id number] 21:45:00* Test Item Value Reference Range Comments CSF GLUCOSE (test code=GLUCSF) mg/dL 45-65 CSF TOTAL [id number] 21:45:00* Test Item Value Reference Range Comments CSF TOTAL PROTEIN (test code=PROTCSF) mg/dL 15-45 URINALYSIS [id number] 21:21:00* Test Item Value Reference Range Comments UA COLOR (test code=COLU) YELLOW YELLOW UA APPEARANCE (test code=APPU) TURBID CLEAR UA GLUCOSE DIPSTICK (test code=DGLUU) NEGATIVE mg/dL NEGATIVE UA BILIRUBIN DIPSTICK (test code=BILU) NEGATIVE mg/dL NEGATIVE UA KETONE DIPSTICK (test code=KETU) NEGATIVE mg/dL NEGATIVE UA SPECIFIC GRAVITY (test code=SGU) 1.020 1.001-1.035 UA BLOOD DIPSTICK (test code=CEM) Negative mg/dL NEGATIVE UA PH DIPSTICK (test code=RAUL) 7.0 5.0-8.0 UA PROTEIN DIPSTICK (test code=PROU) 50 (1+) mg/dL NEGATIVE UA UROBILINIOGEN DIPSTICK (test code=URO) Normal mg/dL NEGATIVE UA NITRITE DIPSTICK (test code=LUIS CARLOS) NEGATIVE NEGATIVE UA LEUKOCYTE ESTERASE W REFLEX (test code=LEUUR) 75 Fredis/uL (1+) Fredis/uL NEGATIVE UA WBC (test code=WBCU) 21-50 per HPF 0-5 UA RBC (test code=RBCU) 0-2 #/HPF 0-5 UA EPITHELIAL CELLS (test code=EPIU) MANY per HPF FEW UA BACTERIA (test code=BACU) MANY #/HPF NONE UA MUCUS (test code=MUCU) FEW #/LPF FEW Urine Source? Clean CatchURINALYSIS [id number] 21:20:00* Test Item Value Reference Range Comments UA COLOR (test code=COLU) YELLOW YELLOW UA APPEARANCE (test code=APPU) TURBID CLEAR UA GLUCOSE DIPSTICK (test code=DGLUU) NEGATIVE mg/dL NEGATIVE UA BILIRUBIN DIPSTICK (test code=BILU) NEGATIVE mg/dL NEGATIVE UA KETONE DIPSTICK (test code=KETU) NEGATIVE mg/dL NEGATIVE UA SPECIFIC GRAVITY (test code=SGU) 1.020 1.001-1.035 UA BLOOD DIPSTICK (test code=CEM) Negative mg/dL NEGATIVE UA PH DIPSTICK (test code=RAUL) 7.0 5.0-8.0 UA PROTEIN DIPSTICK (test code=PROU) 50 (1+) mg/dL NEGATIVE UA UROBILINIOGEN DIPSTICK (test code=URO) Normal mg/dL NEGATIVE UA NITRITE DIPSTICK (test code=LUIS CARLOS) NEGATIVE NEGATIVE UA LEUKOCYTE ESTERASE W REFLEX (test code=LEUUR) 75 Fredis/uL (1+) Fredis/uL NEGATIVE UA WBC (test code=WBCU) per HPF 0-5 UA RBC (test code=RBCU) per HPF 0-5 UA EPITHELIAL CELLS (test code=EPIU) per HPF Few UA BACTERIA (test code=BACU) per HPF NONE Urine Source? Clean Catch- CT HEAD/BRAIN W/O [id number] 18:33:00 Name: CARLOS TOLLIVER [facility] : 1970 Age/S: 48 / F [address] Unit #: [id number] Loc: [place] ANTON[place] [address] Phys: Krystle Lange MD Acct: [id number] Di s Date: Status: REG ER PHONE #: Exam Date: 03/27/2019 1803 FAX #: [phone] Reason: CODE SEPSIS EXAMS: CPT CODE: [id number] CT HEAD/BRAIN W/O CONT 85583 HISTORY: Sepsis. COMPARISON: None available. CT brain without contrast: Autom ated exposure control. No acute intracranial bleeds or extra-axial collections and there is no acute territorial vascular infarction. The rodriguez-white matter differentiation is preserved. The sulci, gyri, ventricles and subarachnoid spaces and the basilar cisterns are normal for patient's age. No herniation or hydrocephalus or midline shift is not ed. Fourth ventricle remains midline. Portions of the visualized p aranasal sinuses are unremarkable. No obvious bony calvarial defec t is noted. IMPRESSION: No acute intracranial bleeds or extra-axial collections. No acute territorial vascul ar infarction. No herniation or hydrocephalus or midline shift . at 1833 Reported and signed by: Robert Akbar M.D. CC: Krystle Lange MD Technologist :Caren Luis RT(R); BITA Fontaine CTDI: DLP: Trnscb Date/Time: 11/2018 (183) t.SDR.TH4 Orig Print D/T: S: 03/27/2019 (18 36) PAGE 1 Signed Report HCG SERUM [id number] 18:31:00* Test Item Value Reference Range Comments HCG SERUM QUAL (test code=HCGQL) NEGATIVE NEGATIVE This HCGQL test is NOT applicable for MALE patients.Check with nurse about probable order error.If Tumor Marker Test needed, nurse should order test "HCGTU"(Test #[id number]) PROTHROMBIN [id number] 18:30:00* Test Item Value Reference Range Comments PROTHROMBIN TIME PATIENT (test code=PTP) 11.0 seconds 9.0-14.0 INTERNATIONAL NORMAL RATIO (test code=INR) 0.9 0.8-1.2 The therapeutic range for oral anticoagulant therapy formost indications is an international normalized ratio (INR)of between 2.0 and 3.0. The recommended therapeutic INRrange for various clinical situations is listed below: Clinical Situation INR range Pulmonary e mbolism treatment (2.0-3.0)Venous thrombosis treatmentVenous thrombosis prophylaxis (high risk surgery)Prevention of systemic embolism from: Acute myocardial infarction Valvular heart disease Atrial fibrillation Mechanical prosthetic heart valves (2.5-3.5) IS PATIENT ON ANTICOAGULANTS? NTHROMBOPLASTIN TIME [id number] 18:30:00* Test Item Value Reference Range Comments THROMBOPLASTIN TIME PARTIAL (test code=PTT) 35.8 seconds 25.0-36.5 IS PATIENT ON ANTICOAGULANTS? N- XR CHEST 1 [id number] 18:25:00 FAX: Krystle Goodman [phone] [place]: B St: REG Name: CARLOS WILKS [facility] : [birth year] Age/S: 48/F [address] [facility] Unit #: [id number] Loc: [place] [address] Phys: Krystle Lange MD Acct: [id number] Dis Date: Status: REG ER PHONE #: [phone] Exam Date: 03/27/2019 175 FAX #: [phone] Reason: CODE SEPSIS EXAMS: CPT CODE: [id number] XR CHEST 1 V 12610 HISTORY: Sepsis. COM PARISON: None available. No acute infiltrates, effusion or congest ion is noted. Hyperinflation. The cardiac and mediastinal silhouette are w ithin normal limits. IMPRESSION: No acute in filtrates, effusion or congestion. Hyperinflation Electronically Sig maria isabel by Alexa Akbar on 03/27/2019 at 182 Reported and signed by: Robert Akbar M.D. CC: Tavares Lange MD Technologist: ANDREW MONTEMAYOR RT (R); ... Trnscrd Date/Time/By: 03/27/2019 (1824) : By: [email or web address] Orig Print D/T: S: 03/27/2019 (1827) P AGE 3 Signed Report BASIC METABOLIC [id number] 18:18:00* Test Item Value Reference Range Comments SODIUM (test code=NA) 142 mmol/L 136-145 POTASSIUM (test code=K) 4.1 mmol/L 3.5-5.1 CHLORIDE (test code=CL) 109.0 mmol/L 98-107 CARBON DIOXIDE (test code=CO2) 24.0 mmol/L 21-32 ANION GAP (test code=GAP) 13.1 10-20 GLUCOSE (test code=GLU) 116 mg/dL 74-106 BLOOD UREA NITROGEN (test code=BUN) 18 mg/dL 7-18 GLOMERULAR FILTRATION RATE (test code=GFR) > 60 mL/min >=60 Estimated GFR by using Modified MDRD formula.Chronic kidney disease is defined as either kidney damageor GFR <60 mL/min/1.73 m2 for >3 months. CREATININE (test code=CREAT) 0.80 mg/dL 0.55-1.02 Note change in reference range due to change in reagent. BUN/CREATININE RATIO (test code=BUN/CREA) 22.5 10-20 CALCIUM (test code=CA) 9.9 mg/dL 8.5-10.1 HEPATIC FUNCTION [id number] 18:18:00* Test Item Value Reference Range Comments TOTAL PROTEIN (test code=PROT) 8.1 gram/dL 6.4-8.2 ALBUMIN (test code=ALB) 3.9 g/dL 3.4-5.0 GLOBULIN (test code=GLOB) 4.2 gram/dL 2.7-4.2 ALBUMIN/GLOBULIN RATIO (test code=A/G) 0.9 0.75-1.50 BILIRUBIN TOTAL (test code=BILT) 0.40 mg/dL 0.0-1.0 BILIRUBIN DIRECT (test code=BILD) 0.10 mg/dL 0.0-0.20 SGOT/AST (test code=AST) 28 IUnit/L 15-37 SGPT/ALT (test code=ALT) 47 IUnit/L 12-78 ALKALINE PHOSPHATASE TOTAL (test code=ALKP) 48 IUnit/L 45-117 Note change in reference range due to change in reagent. [id number] 18:18:00* Test Item Value Reference Range Comments LIPASE (test code=LIP) 131 U/L 73.0-393.0 [id number] 18:18:00* Test Item Value Reference Range Comments TROPONIN-I (test code=TROPI) <0.015 ng/mL 0-0.045 LACTIC [id number] 18:15:00* Test Item Value Reference Range Comments LACTIC ACID (test code=LACT) 1.8 mmol/L 0.4-1.9 BASIC METABOLIC [id number] 18:09:00* Test Item Value Reference Range Comments SODIUM (test code=NA) 142 mmol/L 136-145 POTASSIUM (test code=K) 4.1 mmol/L 3.5-5.1 CHLORIDE (test code=CL) 109.0 mmol/L 98-107 CARBON DIOXIDE (test code=CO2) mmol/L 21-32 ANION GAP (test code=GAP) 10-20 GLUCOSE (test code=GLU) mg/dL 74-106 BLOOD UREA NITROGEN (test code=BUN) mg/dL 7-18 GLOMERULAR FILTRATION RATE (test code=GFR) mL/min >=60 CREATININE (test code=CREAT) mg/dL 0.55-1.02 BUN/CREATININE RATIO (test code=BUN/CREA) 10-20 CALCIUM (test code=CA) mg/dL 8.5-10.1 HEPATIC FUNCTION [id number] 18:09:00* Test Item Value Reference Range Comments TOTAL PROTEIN (test code=PROT) gram/dL 6.4-8.2 ALBUMIN (test code=ALB) g/dL 3.4-5.0 GLOBULIN (test code=GLOB) gram/dL 2.7-4.2 ALBUMIN/GLOBULIN RATIO (test code=A/G) 0.75-1.50 BILIRUBIN TOTAL (test code=BILT) mg/dL 0.0-1.0 BILIRUBIN DIRECT (test code=BILD) mg/dL 0.0-0.20 SGOT/AST (test code=AST) IUnit/L 15-37 SGPT/ALT (test code=ALT) IUnit/L 12-78 ALKALINE PHOSPHATASE TOTAL (test code=ALKP) IUnit/L 45-117 [id number] 18:09:00* Test Item Value Reference Range Comments LIPASE (test code=LIP) U/L 73.0-393.0 [id number] 18:09:00* Test Item Value Reference Range Comments TROPONIN-I (test code=TROPI) ng/mL 0-0.045 CBC W/AUTO [id number] 17:56:00* Test Item Value Reference Range Comments WHITE BLOOD CELL (test code=WBC) 5.6 K/mm3 4.5-12.5 RED BLOOD CELL (test code=RBC) 4.56 mill/mm3 3.7-5.2 HEMOGLOBIN (test code=HGB) 12.6 gram/dL 11.5-15.5 HEMATOCRIT (test code=HCT) 39.5 % 36.0-46.0 MEAN CELL VOLUME (test code=MCV) 86.6 fL 80-98 MEAN CELL HGB (test code=MCH) 27.6 picogram 27.0-33.0 MEAN CELL HGB CONCETRATION (test code=MCHC) 31.9 gram/dL 33.0-36.0 RED CELL DISTRIBUTION WIDTH (test code=RDW) 17.6 % 11.6-16.2 RED CELL DISTRIBUTION WIDTH SD (test code=RDW-SD) 56.1 fL 37.0-51.0 PLATELET COUNT (test code=PLT) 381 K/mm3 150-450 MEAN PLATELET VOLUME (test code=MPV) 10.0 fL 6.7-11.0 NEUTROPHIL % (test code=NT%) 55.0 % 39.0-69.0 IMMATURE GRANULOCYTE % (test code=IG%) 0.4 % 0.0-5.0 LYMPHOCYTE % (test code=LY%) 31.2 % 25.0-55.0 MONOCYTE % (test code=MO%) 7.8 % 0.0-10.0 EOSINOPHIL % (test code=EO%) 3.6 % 0.0-5.0 BASOPHIL % (test code=BA%) 2.0 % 0.0-1.0 NUCLEATED RBC % (test code=NRBC%) 0.0 % 0-0 NEUTROPHIL # (test code=NT#) 3.09 K/mm3 1.8-7.7 IMMATURE GRANULOCYTE # (test code=IG#) 0.02 x10 3/uL 0-0.03 LYMPHOCYTE # (test code=LY#) 1.75 K/mm3 1.0-5.0 MONOCYTE # (test code=MO#) 0.44 K/mm3 0-0.8 EOSINOPHIL # (test code=EO#) 0.20 K/mm3 0.0-0.5 BASOPHIL # (test code=BA#) 0.11 K/mm3 0.0-0.2 NUCLEATED RBC # (test code=NRBC#) 0.00 K/mm3 0.0-0.1 MANUAL DIFF REQUIRED (test code=MDIFF) NO CBC W/AUTO [id number] 17:55:00* Test Item Value Reference Range Comments WHITE BLOOD CELL (test code=WBC) K/mm3 4.5-12.5 RED BLOOD CELL (test code=RBC) mill/mm3 3.7-5.2 HEMOGLOBIN (test code=HGB) 12.6 gram/dL 11.5-15.5 HEMATOCRIT (test code=HCT) 39.5 % 36.0-46.0 MEAN CELL VOLUME (test code=MCV) fL 80-98 MEAN CELL HGB (test code=MCH) picogram 27.0-33.0 MEAN CELL HGB CONCETRATION (test code=MCHC) gram/dL 33.0-36.0 RED CELL DISTRIBUTION WIDTH (test code=RDW) % 11.6-16.2 RED CELL DISTRIBUTION WIDTH SD (test code=RDW-SD) fL 37.0-51.0 PLATELET COUNT (test code=PLT) K/mm3 150-450 MEAN PLATELET VOLUME (test code=MPV) fL 6.7-11.0 NEUTROPHIL % (test code=NT%) % 39.0-69.0 IMMATURE GRANULOCYTE % (test code=IG%) % 0.0-5.0 LYMPHOCYTE % (test code=LY%) % 25.0-55.0 MONOCYTE % (test code=MO%) % 0.0-10.0 EOSINOPHIL % (test code=EO%) % 0.0-5.0 BASOPHIL % (test code=BA%) % 0.0-1.0 NEUTROPHIL # (test code=NT#) K/mm3 1.8-7.7 LYMPHOCYTE # (test code=LY#) K/mm3 1.0-5.0 MONOCYTE # (test code=MO#) K/mm3 0-0.8 EOSINOPHIL # (test code=EO#) K/mm3 0.0-0.5 BASOPHIL # (test code=BA#) K/mm3 0.0-0.2 CHEST 2 [id number] 19:45:00 [place] [id number] Patient Name: CARLOS MUNOZ MR #: [id number] : 1970 Age/Sex: 48/F Req #: [id number] Adm Physician: Ordered by: ARMANI GARZA MD Report #: [id number] Location: ER Room/Bed: Procedure: D X/CHEST 2 VIEWS Exam Date: 03/06/19 Exam Time: 1917 REPORT STATUS: Signed EXAMINATIO N: CHEST 2 VIEWS INDICATION: SOB [id number] COM PARISON: None FINDINGS: PA and lateral views TUBES and LINES: None. LUNGS: Lungs are well inflated. There is no evidence of pneumonia o r pulmonary edema. PLEURA: No pleural effusion or pneumothorax. HEA RT AND MEDIASTINUM: The cardiomediastinal silhouette is unremarkable. BONES AND SOFT TISSUES: No acute osseous lesion. Soft tissues are unremarkab le. UPPER ABDOMEN: No free air under the diaphragm. IMPRESSION: No acute thoracic abnormality. Signed by: Dr. Nagi Felipe MD on 03/06 7:45 PM Dictated By: NAGI FELIPE MD 44 Transcribed By: KARYNA on 03/06/191944 COPY TO: ARMANI GARZA MD CT BRAIN [id number] 19:27:00 [place] [id number] Patient Name: CARLOS MUNOZ MR #: [id number] : 1970 Age/Sex: 48/F Req #: [id number] Adm Physician: Ordered by: ARMANI GARZA MD Report #: [id number] Location: ER Room/Bed: Procedure: C T/CT BRAIN WO Exam Date: 03/06/19 Exam Time: 1914 REPORT STATUS: Signed Exam: Head CT without contrast History: Forgetfulness, headache, disoriented Comparison studies: None Technique: Axial images were obtained from the skull base to the vertex. Coronal and sagittal images reconstructed from the axial data. Dose modulation, iterative reconstruction, and/or weight based adjustment of the mA/kV was utilized to reduce the radiation dose to as low as reasonably achievable. Radiation dose: Total DLP: 921 mGy*cm. Estimated effec tive dose: DLP x 0.015 Intravenous contrast: None Findings: Scalp: No abnormalities. Bones: No fractures, blastic or lytic lesions. Brain hubbard lci: Appropriate for age. Ventricles: Normal in size and configuration. No hyd rocephalus. Extra-axial spaces: No masses, no fluid collection. Parenchy ma: No abnormal densities. No masses, acute hemorrhage, acute or chronic v ascular insults. Sellar/suprasellar region: No abnormalities. Craniocervi angelica junction: Patent foramen magnum. No Chiari one malformation. Included p aranasal sinuses: Clear. Middle ear and mastoid cavities: Clear. IMPRESSI ON: No acute abnormalities. Signed by: Dr. Alton German M.D. on 02/20 7:30 PM Dictated By: ALTON GERMAN MD 29 Transcribed By: KARYNA on 03/06/191929 COPY TO: ARMANI GARZA MD
== END 2019-09-19 00:45 | disposition home or self-care (01) ==
LOC: ER 00:29
DX: F44.6 Conversion disorder with sensory symptom or deficit (principal); F39 Unspecified mood [affective] disorder
CPT/HCPCS: 99282